=== PATIENT | female | born 1960 | race Caucasian/White ===

== ENCOUNTER 2025-02-10 09:14 | Outpatient (CLI) | payer BC, SELFPAY ==
--- NOTE | 2025-02-10 09:30 | MR_ITS ---
FINAL REPORT CLINICAL HISTORY: Abnormal ultrasound liver fatigue , tired , pain FINDINGS: MR abdomen, without and with contrast History: Abnormal hepatic ultrasound Technique: Multiplanar MR, without and with gadolinium enhancement Findings: Liver is homogeneous. No mass or abnormal enhancement is present. There is no biliary ductal dilatation. Spleen is at the upper limits of normal measuring up to 11.3 cm in greatest dimension. Remaining solid organs are normal. No adenopathy is seen. Abdominal aorta is normal in caliber. Gallbladder has a normal appearance. IMPRESSION: Unremarkable without evidence of hepatic mass or changes of cirrhosis or biliary obstruction Authenticated and ERN
[2025-02-10] MEDS: SODIUM CHLORIDE 0.9% 10ML SYR (RAD ONLY) 10 ML IV (10:34)
[2025-02-10] MEDS: 0.9 % SODIUM CHLORIDE 50 ML VIAL 35 ML IV (10:34)
[2025-02-10] MEDS: GADOTERIDOL INJ 20ML SYRINGE 16 ML IV (10:34)
== END 2025-02-10 23:59 | disposition home or self-care (01) ==
LOC: RAD 09:14
PROVIDERS: PCP Internal Medicine; Visit Provider Internal Medicine Gastroenterology
DX: R93.2 Abnormal findings on diagnostic imaging of liver and biliary tract (principal); R53.83 Other fatigue; R52 Pain, unspecified
CPT/HCPCS: 74183; A9576